=== PATIENT | male | born 1970 | race Caucasian/White ===

== ENCOUNTER 2022-03-21 11:08 | Emergency (ER) | payer OTHER ==
[2022-03-21] MEDS ORDERED: HYDROcodone/APAP 5-325MG 1 EACH TAB PO STA (11:41)
[2022-03-21] MEDS ORDERED: LIDOCAINE 1% INJ 10MG/ML (20 ML MDV) SQ ONE (11:41)
--- NOTE | 2022-03-21 11:47 | ED ---
Wound/Laceration HPI - General Chief Complaint: Wound/Laceration Stated Complaint: Lt. hand lac Time Seen by Provider: 03/21/22 11:38 Source: patient, RN notes reviewed, old records reviewed Mode of arrival: ambulatory Limitations: no limitations - History of Present Illness Initial Comments: This is a well-appearing 51-year-old male that presents to the emergency room with complaints of laceration to his left hand caused by a skill saw. He has full range of motion. No active bleeding. Patient states his tetanus shot is up-to-date. -: hour(s) (1) Extremity Location: Left: Hand (dorsal hand proximal to web space of first and second digits) Place: outdoors Patient Tetanus UTD: Yes Context: accidental, power tool use (skill saw) Associated Symptoms: none - Related Data Previous Rx's Medication Instructions Recorded Cephalexin [Keflex] 500 mg PO Q6HR 2 Days #8 cap 03/21/22 Allergies Allergy/AdvReac Type Severity Reaction Status Date / Time No Known Allergies Allergy Verified 03/21/22 11:34 Review of Systems ROS Statement: Those systems with pertinent positive or pertinent negative responses have been documented in the HPI. ROS Other: All systems not noted in ROS Statement are negative. Past Medical History Past Medical History: No Reported History History of Any Multi-Drug Resistant Organisms: None Reported Additional Past Surgical History / Comment(s): rotator cuff Past Psychological History: No Psychological Hx Reported Smoking Status: Current every day smoker Past Drug Use History: None Reported General Exam Limitations: no limitations General appearance: alert, in no apparent distress Head exam: Present: atraumatic Respiratory exam: Absent: respiratory distress, accessory muscle use Cardiovascular Exam: Present: regular rate Extremities exam: Present: normal capillary refill Left Hand Wrist exam: Present: full ROM, tenderness, laceration (approx 5cm lac eration dorsal surface proximal to web space of first and second digits). Absent: deformity Neuro motor exam: Present: wrist extension intact, thumb opposition intact, thumb IP flexion intact, thumb adduction intact, fingers 2-5 abduction intact Neurosensory exam: Present: radial nerve intact, ulnar nerve intact, median nerve intact Vascular: Present: normal capillary refill. Absent: vascular compromise Neurological exam: Present: alert, oriented X3, normal gait Psychiatric exam: Present: normal affect, normal mood Skin exam: Present: warm, dry, normal color. Absent: cyanosis, diaphoretic, petechiae, pallor Course Vital Signs 03/21/22 03/21/22 11:31 12:43 Temperature 98.2 F 98.3 F Pulse Rate 83 65 Respiratory 20 18 Rate Blood Pressure 176/100 154/100 O2 Sat by Pulse 99 98 Oximetry Procedures - Laceration Laceration #1 Consent Obtained: verbal consent Indication: laceration Site: upper extremity, hand Size (cm): 5 Description: linear Depth: simple, single layer Anesthetic Used: lidocaine 1% Anesthesia Technique: local infiltration Pre-repair: irrigated extensively, deep structures intact Size of Sutures: 5-0 Number of Sutures: 10 Technique: simple, interrupted Patient Tolerated Procedure: well, no complications Medical Decision Making - Medical Decision Making X-ray shows no foreign body. No fractures or dislocation. Postsurgical changes to his scaphoid with hardware in place and intact. Patient was given Enochs for pain. Patient has full range of motion. Wound was irrigated copiously and closed with 10 sutures. Bacitracin and bulky dressing applied. Directed to have sutures removed in 7-10 days. Keflex prescribed for 2 days prophylactically. He states his tetanus shot is up-to-date. Case discussed with Dr. Scales Disposition Clinical Impression: Laceration Disposition: HOME SELF-CARE Condition: Good Instructions (If sedation given, give patient instructions): Care For Your Stitches (ED), Laceration (ED) Additional Instructions: Keep wound clean and dry. Tomorrow morning change the dressing and apply a layer of Neosporin and a bandage. Sutures to be removed in 7-10 days. Take antibiotics for the next 2 days to prevent infection. Return to the emergency room with any new or concerning symptoms including signs of infection fever, redness or drainage. Prescriptions: Cephalexin [Keflex] 500 mg PO Q6HR 2 Days #8 cap Is patient prescribed a controlled substance at d/c from ED?: No Referrals: Jonathan Mckeon MD [Primary Care Provider] - 1-2 days Time of Disposition: 12:44
[2022-03-21] MEDS ORDERED: BACITRACIN OINT 1 EACH PACKET TOPICAL ONE (12:13)
--- NOTE | 2022-03-21 12:42 | XR ---
EXAMINATION TYPE: XR hand complete LT DATE OF EXAM: 03/21/2022 12:18 PM INDICATION: Patient age:Male; 51 years old; Reason for study: cut on skill saw; [facility]. COMPARISON: None TECHNIQUE: Frontal, lateral and oblique views of the left hand were obtained. FINDINGS: Skin defect within the web space of the first and second digit. Postsurgical changes to the scaphoid with screw in place. Screw appears intact. There appears to be good osseous fusion of the s caphoid. Post interventional changes to the distal radius noted. Mild degeneration changes of the wri st with some joint space narrowing. No radiopaque foreign body. IMPRESSION: 1. No radiopaque foreign body with laceration as provided in history between the web space of the fi rst and second digit. 2. No acute osseous pathology. 3. Postsurgical changes to the scaphoid with hardware in place and intact. 4. Mild wrist osteoarthrosis
[2022-03-21 12:55] VITALS: BP 154/100; PULSE 65; RESP 18; TEMP 98.3
== END 2022-03-21 12:45 | disposition home or self-care (01) ==
LOC: EC 11:08
DX: S61.412A Laceration without foreign body of left hand, initial encounter (principal); F17.200 Nicotine dependence, unspecified, uncomplicated; W27.0XXA Contact with workbench tool, initial encounter; Y92.89 Other specified places as the place of occurrence of the external cause
CPT/HCPCS: 73130; 12002; 99283; J2001